=== PATIENT | male | born 1950 | race African-American/Black ===

== ENCOUNTER 2017-08-19 06:58 | Emergency (ER) | payer BC, OTHER ==
[~2017-08-19] VITALS: Ht 177.8 cm; Wt 90.0 kg
[~2017-08-19 06:58] MED LIST: AMLO5TAB2 PO; FERR200T PO; LAMI250T PO; LISI20TA PO; VIAG100T PO; VITA500T4 PO
[2017-08-19 07:06] VITALS: BP 168/97; PULSE 78; RESP 16; TEMP 98.3; O2SAT 100
[2017-08-19] MEDS ORDERED: KETOROLAC TROMETHAMINE 60 MG/2 ML (IM) VIAL IM ONE (08:00)
[2017-08-19] MEDS ORDERED: ORPHENADRINE INJ 60 MG/2 ML AMP IM ONE (08:00)
--- NOTE | 2017-08-19 08:28 | PD ---
HPI Chief Complaint: Pain: Acute or Chronic Time Seen by Provider: 07:44 Travel History International Travel<30 days: No Contact w/Intl Traveler<30days: No Traveled to known affect area: No History of Present Illness HPI 67-year-old male presents to the emergency department with complaint of back pain to his thoracic back 4 days after he fell on his back onto a 2 x 6 piece of wood while at work the other day. Denies encopresis, incontinence, saddle anesthesias. Denies fever, vomiting, abdominal pain. Denies paresthesias, loss of sensation, decreased range of motion, decreased strength to all extremities. Denies chest pain, shortness of breath. Denies change in stool or urine. Has been taking ibuprofen for symptom management with good relief of symptoms. Last took ibuprofen at 4 AM. Rates pain 10/10. Better with ibuprofen. Worse with movement. Primary CARE providers Dr. Meehan. No known allergies. History of hypertension and has not taken his medication this morning. Has no other medical complaints. No other modifying factors or associated signs and symptoms. PFSH Past Medical History Hypertension: Yes Tetanus Vaccination: > 5 Years Past Surgical History Ear Surgery: Yes Social History Alcohol Use: Yes Tobacco Use: No Substance Use: No Allergies-Medications (Allergen,Severity, Reaction): Coded Allergies: No Known Allergies (Verified Adverse Reaction, Unknown, 08/19/17) Reported Meds & Prescriptions Reported Meds & Active Scripts Active Ibuprofen 800 Mg Tab 800 Mg PO Q8H PRN Robaxin (Methocarbamol) 500 Mg Tab 500 Mg PO QID PRN Amlodipine (Amlodipine Besylate) 5 Mg Tab 5 Mg PO BID Lisinopril-Hctz 20-12.5 Mg Tab 1 Tab PO BID Viagra (Sildenafil Citrate) 100 Mg Tab 100 Mg PO DAILY PRN Vitamin B-12 (Cyanocobalamin) 500 Mcg Tab 500 Mcg PO DAILY Feosol (Ferrous Sulfate) 325 Mg (65 Mg Iron) Tab 200 Mg PO BIDPC Review of Systems Except as stated in HPI: all other systems reviewed are Neg Physical Exam Narrative GENERAL: Well-nourished, well-developed black male patient, in no acute distress ; afebrile, nontoxic-appearing SKIN: Warm and dry. HEAD: Atraumatic. Normocephalic. EYES: Pupils equal and round. No scleral icterus. No injection or drainage. ENT: Mucosa pink and moist. Airway patent. NECK: Moving freely. Trachea midline. CARDIOVASCULAR: Regular rate rate and rhythm. No murmur appreciated. RESPIRATORY: No accessory muscle use. Breath sounds clear and equal bilaterally. GASTROINTESTINAL: Abdomen soft, non-tender, nondistended. Positive bowel sounds. No hepato-splenomegaly, or palpable masses. No guarding. MUSCULOSKELETAL: Bilateral lower extremities supple and non-tense with 2+ pedal pulses and sensory intact; with full range of motion and 5/5 strength. 2 + DTRs bilaterally. Active dorsiflexion and extension of bilateral feet. Bilateral straight leg raise reproduces back pain. Ambulatory in room with guarded gait. Sitting up in bed at 90. No obvious deformities. No clubbing. No cyanosis. No edema. BACK: midline point tenderness on palpation of the thoracic spine and to the musculature in between bilateral scapulas. No tenderness on palpation of the lumbar spine. No obvious deformities. NEUROLOGICAL: Awake and alert. Oriented 3. No obvious cranial nerve deficits. Motor grossly within normal limits. Normal speech. Moves all extremities. 5/5 strength to all extremities. Sensory intact. PSYCHIATRIC: Appropriate mood and affect; insight and judgment normal. Data Data Last Documented VS Vital Signs Date Time Temp Pulse Resp B/P (MAP) Pulse Ox O2 Delivery O2 Flow Rate FiO2 08/19/17 07:06 98.3 78 16 168/97 (120) 100 Orders Orders Ketorolac Inj (Toradol Inj) (08/19/17 08:00) Orphenadrine Inj (Norflex Inj) (08/19/17 08:00) Spine, Thoracic-Ap/Lat/Sw(3vw) (08/19/17 07:54) Ed Discharge Order (08/19/17 09:31) [facility] Medical Decision Making Medical Screen Exam Complete: Yes Emergency Medical Condition: Yes Medical Record Reviewed: Yes Differential Diagnosis Thoracic back muscle strain, spinal fracture, spinal contusion, fall Narrative Course 67-year-old male with back pain to his thoracic area and midline tenderness on palpation of the thoracic spine after falling onto a 2 x 6 piece of wood on while at work. Neuro exam is unremarkable. Patient ambulatory in the room with a guarded gait. Toradol, Norflex, thoracic spine x-ray ordered. 0929: Thoracic spine x-ray concludes: Thoracic Spine X-Ray 08/19/17 3701 Signed Impressions: CONCLUSION: Degenerative changes of the thoracic spine without an acute abnormality identif ied. Patient provided a copy of the x-ray report. Robaxin and ibuprofen prescribed for home. Instructed patient to follow up with primary care provider. Patient verbalizes understanding and agreement with treatment plan. Patient is medically cleared and stable for discharge. Discussed reasons to return to the emergency department. Patient agrees with treatment plan. The patients vital signs are stable and the patient is stable for outpatient follow-up and treatment. Patient discharged home, stable and in no acute distress. Diagnosis Primary Impression: Thoracic back pain Qualified Codes: M54.6 - Pain in thoracic spine Referrals: Primary Care Physician Patient Instructions: Back Pain (ED), General Instructions, Muscle Spasm (ED), Muscle Strain (ED) Additional Instructions: Tylenol or ibuprofen as directed and as needed for pain Robaxin as prescribed and as needed for muscle spasms Heating pad and/or ice to affected area to reduce pain Avoid aggravating activities; increase activity as tolerated Follow-up with primary care provider Return to emergency department immediately with worsening of symptoms Med/Other Pt SpecificInfo: Prescription(s) given Scripts Ibuprofen (Ibuprofen) 800 Mg Tab 800 MG PO Q8H Y for PAIN SCALE 1 TO 10, #20 TAB 0 Refills Prov: Jeny Elena 08/19/17 Methocarbamol (Robaxin) 500 Mg Tab 500 MG PO QID Y for MUSCLE SPASM, #30 TAB 0 Refills Prov: Jeny Elena 08/19/17 Disposition: 01 DISCHARGE HOME Condition: Stable Jeny Elena Aug 19, 2017 08:28
--- NOTE | 2017-08-19 09:12 | RADRPT ---
EXAM DATE: 08/19/2017 8:57 AM EDT AGE/SEX: 67 years / Male INDICATIONS: Slipped on wood 5 days ago. CLINICAL DATA: This is the patient's initial encounter. Patient reports that signs and symptoms have been present for 4 - 6 days and indicates a pain score of 8/10. MEDICAL/SURGICAL HISTORY: None. None. COMPARISON: No prior exams available for comparison. FINDINGS: 4 views of the thoracic spine demonstrate no fracture or compression deformity. No anterolisthesis or retrolisthesis is present. There are endplate osteophytes anteriorly at multiple levels. The visuali zed surrounding structures demonstrate no acute finding. CONCLUSION: Degenerative changes of the thoracic spine without an acute abnormality identified. Electronically signed by: Ricky Ram MD 08/19/2017 9:10 AM EDT
[2017-08-19] MEDS ORDERED: ROBA500T PO (09:30)
[2017-08-19] MEDS ORDERED: IBUP1TAB7 PO (09:30)
== END 2017-08-19 09:40 | disposition home or self-care (01) ==
LOC: NEPD 06:58
DX: M51.34 Other intervertebral disc degeneration, thoracic region (principal); I10 Essential (primary) hypertension; Z79.899 Other long term (current) drug therapy
CPT/HCPCS: 72072; 96372; 99283; J1885; J2360